=== PATIENT | male | born 2000 | race Two or more races ===

== ENCOUNTER 2022-03-10 16:46 | Emergency (ER) | payer OTHER ==
[~2022-03-10] VITALS: Ht 177.8 cm; Wt 79.4 kg
[2022-03-10] MEDS ORDERED: DICLOFENAC POTA50 MG PO (20:09)
[2022-03-10] MEDS ORDERED: ORPHENADRINE C100 MG PO (20:09)
== END 2022-03-10 20:15 | disposition home or self-care (01) ==
LOC: ER 16:46